=== PATIENT | female | born 1940 | race American Indian/Alaskan Native ===

== ENCOUNTER 2016-11-26 12:00 | Outpatient (CLI) | payer MEDICARE ==
[2016-11-26 12:56] LABS: Blood Urea Nitrogen 15 mg/dL (7-17)
[2016-11-26] MEDS ORDERED: NACL ONE (14:28)
--- NOTE | 2016-11-27 09:58 | Cat Scan Report ---
CT ABDOMEN AND PELVIS WITH AND WITHOUT CONTRAST: HISTORY: Left lower quadrant abdominal pain. TECHNIQUE: Helical CT before and after IV contrast. Oral contrast was administered. Sagittal and coronal reformatted images. COMPARISON: 08/02/13. FINDINGS: Heart size is within normal limits. Visualized lung bases are well-aerated. Several hepatic cysts are unchanged in size and number. Most of these cysts measure only a few millimeters. The largest cyst in the right hepatic lobe measures 2.8 cm. No hepatic mass or obvious parenchymal disease. The biliary system, spleen, kidneys and adrenal glands are unremarkable. 1 or 2 small cysts in the pancreatic head are unchanged. The remainder of the pancreas is within normal limits. There is mild sigmoid diverticulosis but no acute inflammatory changes are appreciated. The remaining bowel loops including the appendix are within normal limits. The uterus and adnexa are unremarkable. The distal ureters and bladder are within normal limits. No evidence for ascites, adenopathy or free air. No acute bony findings. IMPRESSION: No acute abdominal process. Sigmoid diverticulosis but no evidence for diverticulitis. Scattered hepatic and pancreatic cysts, stable.
== END 2016-11-26 12:01 | disposition home or self-care (01) ==
LOC: CT 12:00
PROVIDERS: ATTEND Internal Medicine
DX: K86.2 Cyst of pancreas (principal); K57.30 Diverticulosis of large intestine without perforation or abscess without bleeding; K76.89 Other specified diseases of liver
CPT/HCPCS: 36415; 74178; 82565; 84520; Q9967

== ENCOUNTER 2021-04-30 14:03 | Outpatient (CLI) | payer MEDICARE ==
--- NOTE | 2021-05-01 09:51 | Mammography Report ---
DIGITAL SCREENING MAMMOGRAM WITH CAD, 04/30/2021 CLINICAL INFORMATION / INDICATION: Routine screening mammography. SCREENING MAMMO Z12.31 TECHNIQUE: Digital right 2D mammography was obtained in the craniocaudal and mediolateral oblique pr ojections. This examination was interpreted with the benefit of Computer-Aided Detection analysis. COMPARISON: 10/22/2011 through 04/29/2020. FINDINGS: Breast Density: There are scattered areas of fibroglandular density. No dominant mass, suspicious calcifications, or architectural distortion in the right breast. There is a prepectoral saline implant. No new abnormality is seen. IMPRESSION: No mammographic evidence of malignancy. Follow up recommendation: Routine yearly BI-RADS Category 2: Benign. A "normal" or negative report should not discourage follow up or biopsy of a clinically significant f inding. A written summary of these findings will be mailed to the patient. The patient will be entered into a mammography reporting system which will generate a reminder letter for the patient's next appointmen t at the appropriate interval. The [employer] recommends yearly mammograms starting at age 40 and continuing as l prasanna as a woman is in good health. Breast MRI is recommended for women with an approximate 20-25% or greater lifetime risk of breast cancer, including women with a strong family history of breast or ova adilene cancer or who have been treated for Hodgkin's disease. Signer Name: Mitul Kingston MD Signed: 05/01/2021 9:47 AM Workstation Name: [email or web address]'m [email or web address]
== END 2021-04-30 14:04 | disposition home or self-care (01) ==
LOC: SPVWC 14:03
PROVIDERS: ATTEND Surgery
DX: Z12.31 Encounter for screening mammogram for malignant neoplasm of breast (principal)

== ENCOUNTER 2022-05-06 13:26 | Outpatient (CLI) | payer MEDICARE ==
--- NOTE | 2022-05-08 11:50 | Mammography Report ---
DIGITAL SCREENING MAMMOGRAM WITH CAD, 05/06/2022 CLINICAL INFORMATION / INDICATION: Routine screening mammography. TECHNIQUE: Digital right 2D mammography was obtained in the craniocaudal and mediolateral oblique pr ojections. This examination was interpreted with the benefit of Computer-Aided Detection analysis. COMPARISON: 04/30/2021, 04/29/2020 FINDINGS: Breast Density: There are scattered areas of fibroglandular density. No dominant mass, suspicious calcifications, or architectural distortion in the right breast. Right prepectoral saline breast implant is noted. Overall, no interval change. IMPRESSION: No mammographic evidence of malignancy. Follow up recommendation: Routine yearly screening mammogram. BI-RADS Category 2: BENIGN. A "normal" or negative report should not discourage follow up or biopsy of a clinically significant f inding. A written summary of these findings will be mailed to the patient. The patient will be entered into a mammography reporting system which will generate a reminder letter for the patient's next appointmen t at the appropriate interval. The [employer] recommends yearly mammograms starting at age 40 and continuing as l prasanna as a woman is in good health. Breast MRI is recommended for women with an approximate 20-25% or greater lifetime risk of breast cancer, including women with a strong family history of breast or ova adilene cancer or who have been treated for Hodgkin's disease. Signer Name: Lashonda Lerma MD Signed: 05/08/2022 11:45 AM Workstation Name: [email or web address]
== END 2022-05-06 13:27 | disposition home or self-care (01) ==
LOC: SPVWC 13:26
PROVIDERS: ATTEND Internal Medicine
DX: Z12.31 Encounter for screening mammogram for malignant neoplasm of breast (principal)
CPT/HCPCS: 77067